=== PATIENT | female | born 1960 | race Caucasian/White ===

== ENCOUNTER 2016-04-04 10:27 | Day surgery (SDC) | payer MEDICAID ==
[~2016-04-04] VITALS: Ht 162.6 cm; Wt 90000.0 kg
[~2016-04-04 10:27] MED LIST: LACTATED RINGERS 1,000 ML IV SCH; SODIUM CHLORIDE FLUSH 3 ML SYR IV PRN
[2016-04-04 10:51] VITALS: BP 148/104
[2016-04-04] MEDS ORDERED: LIDOCAINE 4% TOPICAL 4.5 ML SYR ONE (11:57)
[2016-04-04] MEDS ORDERED: SIMETHICONE 40 MG/0.6 ML (MYLICON DROPS) ORAL SYRINGE ONE (11:57)
[2016-04-04] MEDS ORDERED: ALFENTANIL 500 MCG/ML (ALFENTA) 5 ML AMP IV ONE (12:52)
[2016-04-04] MEDS ORDERED: PROPOFOL 20 ML IV ONE (12:52)
[2016-04-04] MEDS ORDERED: MIDAZOLAM 2 MG/2 ML (VERSED) VIAL ONE (12:52)
[2016-04-04 13:38] VITALS: BP 114/74
[2016-04-04 14:14] VITALS: BP 107/76
--- NOTE | 2016-04-04 14:15 | NUR ---
POTASSIUM OF 2.6 REPORTED TO WIL [facility]SU. NO NEW ORDERS RECEIVED.
--- NOTE | 2016-04-04 14:21 | NUR ---
POTASSIUM OF [address] RAMSEY. NO NEW ORDERS RECEIVED. Addendum: 04/04/16 at 1422 by Pilar Musa RN PATIENT INSTRUCTED TO FOLLOW UP WITH PCP, DR. OLEA.
--- NOTE | 2016-04-04 14:29 | NUR ---
POTASSIUM OF 2.[address] OLEA'S NURSE, JATINDER. JATINDER INFORMED THAT PATIENT HAS BEEN TOLD TO FOLLOW UP.
== END 2016-04-04 14:36 | disposition home or self-care (01) ==
LOC: ASC 10:27
PROVIDERS: ATTEND Surgery
DX: R13.19 Other dysphagia (principal); K21.9 Gastro-esophageal reflux disease without esophagitis; K29.80 Duodenitis without bleeding; K29.30 Chronic superficial gastritis without bleeding; I10 Essential (primary) hypertension; E78.00 Pure hypercholesterolemia, unspecified
CPT/HCPCS: 36415; 43239; 84132; A9270; J2250; J7120

== ENCOUNTER → 2016-05-21 | Outpatient (CLI) | payer MEDICAID ==
[2016-05-21 15:03] VITALS: BP 138/84
== END ==
LOC: MHUC 12:40
PROVIDERS: ATTEND Physician Assistant
DX: R42 Dizziness and giddiness (principal); R53.83 Other fatigue
CPT/HCPCS: 99213

== ENCOUNTER → 2016-05-21 | Outpatient (CLI) | payer MEDICAID ==
[2016-05-21 13:19] LABS: BASOPHILS % (AUTO) 1 % (0-2); EOSINOPHILS # (AUTO) 0.5 10^3uL; EOSINOPHILS % (AUTO) 4 % (0-4); LYMPHOCYTES # (AUTO) 3.3 X10^3; MEAN CORPUSCULAR HEMOGLOBIN 27.5 PG (26.0-34.0); MEAN CORPUSCULAR HGB CONC 34.9 g/dL (31.0-37.0); MEAN PLATELET VOLUME 9.4 FL (6.0-9.5); MONOCYTES # (AUTO) 0.8 X10^3; MONOCYTES % (AUTO) 7 % (3-11); NEUTROPHILS % (AUTO) 60 % (51-67); PLATELET COUNT 387 10^3uL (150-450); WHITE BLOOD COUNT 11.68 10^3uL (4.0-11.0)
[2016-05-21 13:30] LABS: ALBUMIN 4.2 g/dL (3.4-5.0); ANION GAP 13.5 MEQ/L (3-15); CALCULATED IONIZED CALCIUM 4.1 mg/dL (3.8-4.6); TOTAL PROTEIN 7.3 g/dL (6.4-8.5)
[2016-05-21 13:58] LABS: INFLUENZA VIRUS TYPE A ANTIBOD Negative (NEGATIVE); INFLUENZA VIRUS TYPE B ANTIBOD Negative (NEGATIVE)
[2016-05-21 14:03] LABS: MEAN CORPUSCULAR VOLUME 79 FL (80-100)
== END ==
LOC: LAB 13:06
PROVIDERS: ATTEND Physician Assistant
DX: R42 Dizziness and giddiness (principal)
CPT/HCPCS: 36415; 80053; 85025; 87502

== ENCOUNTER 2016-05-23 16:54 | Observation (INO) | payer MEDICAID ==
[~2016-05-23] VITALS: Ht 152.4 cm; Wt 89.5 kg
[2016-05-23] MEDS ORDERED: SODIUM CHLORIDE FLUSH 3 ML SYR IV PRN (17:30)
[2016-05-23] MEDS ORDERED: LORazepam 2 MG/ML (ATIVAN) 1 ML VIAL IV ONE (17:30)
[2016-05-23] MEDS ORDERED: ONDANSETRON 2 MG/ML (Z0FRAN) 2 ML VIAL IV ONE (17:30)
[2016-05-23] MEDS ORDERED: SODIUM CHLORIDE FLUSH 10 ML SYR IV PRN (17:30)
[2016-05-23] MEDS ORDERED: SODIUM CHLORIDE 250 ML IV PRN (17:30)
[2016-05-23] MEDS ORDERED: MECLIZINE 25 MG (ANTIVERT) TABLET PO ONE (17:30)
[2016-05-23 17:48] LABS: BASOPHILS % (AUTO) 1 % (0-2); EOSINOPHILS # (AUTO) 0.4 10^3uL; EOSINOPHILS % (AUTO) 4 % (0-4); MEAN CORPUSCULAR HEMOGLOBIN 27.9 PG (26.0-34.0); MEAN PLATELET VOLUME 9.8 FL (6.0-9.5); MONOCYTES # (AUTO) 0.7 X10^3; MONOCYTES % (AUTO) 8 % (3-11); NEUTROPHILS # (AUTO) 5.5 X10^3; NEUTROPHILS % (AUTO) 57 % (51-67); PLATELET COUNT 350 10^3uL (150-450); WHITE BLOOD COUNT 9.63 10^3uL (4.0-11.0)
[2016-05-23 17:53] LABS: MEAN CORPUSCULAR HGB CONC 35.7 g/dL (31.0-37.0); MEAN CORPUSCULAR VOLUME 78 FL (80-100)
[2016-05-23] MEDS: SODIUM CHLORIDE FLUSH 10 ML SYR IV PRN ×2 (17:55→21:34)
[2016-05-23 17:58] LABS: ALBUMIN 4.4 g/dL (3.4-5.0); ALKALINE PHOSPHATASE 107 U/L (38-126); ANION GAP 13.9 MEQ/L (3-15); BUN/CREATININE RATIO 14 (10-20); CALCULATED IONIZED CALCIUM 4.1 mg/dL (3.8-4.6); CREATINE KINASE 40 U/L (30-135); TOTAL PROTEIN 7.5 g/dL (6.4-8.5)
[2016-05-23 18:40] LABS: BILIRUBIN,URINE Negative (Negative); CLARITY,URINE Cloudy; COLOR,URINE Yellow; GLUCOSE, URINE (UA) Negative (Negative); LEUKOCYTE ESTERASE ,URINE 1+ (Negative); UROBILINOGEN,URINE 0.2 mg/dL (0.2-1.0)
[2016-05-23 18:43] LABS: RBC,URINE 0-2 /HPF; URINE CENTRIFUGED VOLUME <10mL Unspun
[2016-05-23] MEDS ORDERED: POTASSIUM CHLORIDE ER 20 MEQ TABLET PO ONE (18:55)
[2016-05-23] MEDS ORDERED: POTASSIUM CL IVPB 50 ML IV ONE (18:55)
[2016-05-23] MEDS ORDERED: cefTRIAXone SODIUM 1,000 MG in SODIUM CHLORIDE 50 ML IV ONE (19:15)
--- NOTE | 2016-05-23 20:25 | NUR ---
Pt arrives to 318 via cart from ED. Ambulates to weight chair and bed with standby assist. Resp even and non labored on RA. SL intact. See admission assessment for further details.
[2016-05-23 20:30] VITALS: BP 148/92
--- NOTE | 2016-05-23 20:45 | NUR ---
Dr Wilcox in room; updates pt on plan of care. Med list updated.
[2016-05-23] MEDS ORDERED: ACETAMINOPHEN 325 MG TAB (TYLENOL) PO PRN (21:05)
[2016-05-23] MEDS ORDERED: POLYETHYLENE GLYCOL 17 GM (MIRALAX) PACKET PO PRN (21:05)
[2016-05-23] MEDS ORDERED: ONDANSETRON 4 MG (ZOFRAN) ORAL DISSOLVE TAB PO PRN (21:05)
[2016-05-23] MEDS ORDERED: LIDOCAINE PF 1% (XYLOCAINE) 2 ML VIAL INJ ONE ×3 (21:26→23:33)
[2016-05-23] MEDS: POTASSIUM CL IVPB 50 ML IV SCH ×3 (21:34→23:42)
[2016-05-23 23:59] VITALS: BP 109/67
[2016-05-24 00:06] VITALS: BP 109/67
[2016-05-24 04:07] VITALS: BP 118/67
--- NOTE | 2016-05-24 06:05 | NUR ---
Pt rests in long intervals throughout the night. Tolerates potassium infusions w/o difficulty. Lidocaine given IV before potassium infusion per protocol. Resp even and non labored on RA. SL intact. No needs at this time.
[2016-05-24 07:35] VITALS: BP 139/79
--- NOTE | 2016-05-24 07:35 | NUR ---
Patient sleeping in bed upon shift assessment. Arouses easily to verbal stimuli. Alert and oriented X3. Denies pain, dizziness, SOA, nausea, or other distress. Lung sounds CTAB. HR RRR. Updated on plan of care for shift including calling when needing to ambulate for safety and oral potassium schedule. Call light in reach.
[2016-05-24] MEDS ORDERED: POTASSIUM CHLORIDE ER 20 MEQ TABLET PO SCH (08:00)
[2016-05-24 08:32] VITALS: BP 139/79
[2016-05-24] MEDS ORDERED: CHLORTHALIDONE PO SCH (09:00)
[2016-05-24] MEDS ORDERED: AMITRIPTYLINE 50 MG (ELAVIL) TAB PO SCH (09:00)
[2016-05-24] MEDS ORDERED: NON-FORMULARY MEDICATION 1 EA EA (Amitriptyline HCl 100 MG) PO SCH (09:00)
[2016-05-24] MEDS ORDERED: [UNRECOGNIZED DRUG - OTHER] PO SCH (09:00)
[2016-05-24] MEDS ORDERED: ATENOLOL 100 MG PO SCH (09:00)
[2016-05-24] MEDS ORDERED: LEVETIRACETAM 500 MG (KEPPRA) TABLET PO SCH (09:00)
[2016-05-24] MEDS ORDERED: ATENOLOL 25 MG (TENORMIN) TAB PO SCH (09:00)
[2016-05-24] MEDS ORDERED: PANTOPRAZOLE 40 MG (PROTONIX) TAB PO SCH (09:00)
[2016-05-24] MEDS ORDERED: DILTIAZEM 30 MG (CARDIZEM) TAB PO SCH ×2 (09:00→21:00)
[2016-05-24] MEDS ORDERED: CHLORTHALIDONE 50 MG PO SCH (09:00)
[2016-05-24] MEDS ORDERED: ATENOLOL PO SCH (09:00)
--- NOTE | 2016-05-24 10:47 | NUR ---
MED REC COMPLETE--current med list obtained from external med history application and retail pharmacy ([facility]).
[2016-05-24 11:38] VITALS: BP 106/73
--- NOTE | 2016-05-24 13:21 | NUR ---
Discharge order received. IV discontinued with catheter intact. No redness or swelling noted at insertion site. Instructions provided to patient with verbal and written understanding expressed. Discharged via wheelchair to private car accompanied by [employer]. No further needs.
[2016-05-25] MEDS ORDERED: ATENOLOL 50 MG (TENORMIN) TAB PO SCH (09:00)
== END 2016-05-24 13:21 | disposition home or self-care (01) ==
LOC: EDUNIT# 16:54 → ED 16:55 → MED/SURG 19:38
PROVIDERS: ADMIT Pediatrics; ATTEND Pediatrics
DX: I95.1 Orthostatic hypotension (principal); E87.6 Hypokalemia; I10 Essential (primary) hypertension; E78.5 Hyperlipidemia, unspecified; R73.03 Prediabetes; R82.71 Bacteriuria; G40.909 Epilepsy, unspecified, not intractable, without status epilepticus
CPT/HCPCS: 36415; 71010; 80048; 80053; 81003; 81015; 82550; 82553; 83735; 83880; 84132; 84443; 84484; 85025; 85610; 85730; 87088; 93005; 96361; 96365; 96366; 96367; 96375; 99285; A9270; G0378; J0696; J2001; J2060; J2405; J3480; J7030; 93010; 99218

== ENCOUNTER 2016-05-27 12:15 | Inpatient (IN) | payer MEDICAID ==
[~2016-05-27] VITALS: Ht 154.9 cm; Wt 90.3 kg
--- NOTE | 2016-05-27 12:28 | NUR ---
Pt admitted to room 303 at this time via w/c from Dr. Duong's office.
[2016-05-27 12:35] VITALS: BP 135/77
[2016-05-27] MEDS ORDERED: POLYETHYLENE GLYCOL 17 GM (MIRALAX) PACKET PO PRN (12:50)
[2016-05-27] MEDS ORDERED: DOCUSATE SODIUM 100 MG (COLACE) CAP PO PRN (12:50)
[2016-05-27] MEDS ORDERED: MAGNESIUM HYDROXIDE 80MG/ML (MILK OF MAGNESIA) 30 ML UDC PO PRN (12:50)
[2016-05-27] MEDS ORDERED: MAG HYDROX/AL HYDROX/SIMETH 200-200-20/5 ML (MAG-AL PLUS) 30 ML UDC PO PRN (12:50)
[2016-05-27] MEDS ORDERED: ONDANSETRON 4 MG (ZOFRAN) ORAL DISSOLVE TAB PO PRN (12:50)
[2016-05-27] MEDS ORDERED: PROMETHAZINE HCL INJ 12.5 MG in SODIUM CHLORIDE 25 ML IV PRN (12:50)
[2016-05-27] MEDS ORDERED: NS FLUSH 10 ML PRN IV (13:10)
[2016-05-27] MEDS ORDERED: NS FLUSH 3 ML PRN IV (13:10)
[2016-05-27] MEDS ORDERED: SODIUM CHLORIDE 250 ML ONE (13:19)
[2016-05-27] MEDS: POTASSIUM CL INJ SCH ×4 (13:24→16:47)
[2016-05-27] MEDS: LIDOCAINE 1% INJ SCH ×4 (13:24→16:47)
[2016-05-27 13:39] LABS: BASOPHILS % (AUTO) 1 % (0-2); EOSINOPHILS # (AUTO) 0.3 10^3uL; EOSINOPHILS % (AUTO) 3 % (0-4); LYMPHOCYTES # (AUTO) 2.2 X10^3; MEAN CORPUSCULAR HEMOGLOBIN 27.6 PG (26.0-34.0); MEAN CORPUSCULAR HGB CONC 34.7 g/dL (31.0-37.0); MEAN CORPUSCULAR VOLUME 80 FL (80-100); MEAN PLATELET VOLUME 10.2 FL (6.0-9.5); MONOCYTES # (AUTO) 0.5 X10^3; MONOCYTES % (AUTO) 6 % (3-11); NEUTROPHILS # (AUTO) 6.1 X10^3; NEUTROPHILS % (AUTO) 67 % (51-67); PLATELET COUNT 278 10^3uL (150-450); WHITE BLOOD COUNT 9.15 10^3uL (4.0-11.0)
[2016-05-27 13:46] LABS: ALBUMIN 4.1 g/dL (3.4-5.0); ANION GAP 12.9 MEQ/L (3-15); CALCULATED IONIZED CALCIUM 4.1 mg/dL (3.8-4.6); TOTAL PROTEIN 7.1 g/dL (6.4-8.5)
[2016-05-27 14:00] LABS: BILIRUBIN,URINE Negative (Negative); CLARITY,URINE Clear; COLOR,URINE Yellow; GLUCOSE, URINE (UA) Negative (Negative); LEUKOCYTE ESTERASE ,URINE Negative (Negative); UROBILINOGEN,URINE 0.2 mg/dL (0.2-1.0)
[2016-05-27 14:12] VITALS: BP 135/77
[2016-05-27] MEDS ORDERED: fluCOnazole (DIFLUCAN) 100 MG TAB PO ONE (14:15)
[2016-05-27 14:23] LABS: RBC,URINE 0-2 /HPF; URINE CENTRIFUGED VOLUME 12 mL
--- NOTE | 2016-05-27 14:24 | NUR ---
MED REC COMPLETED-current med list obtained from Ext Med History application and previous medication reconciliation from discharge.
--- NOTE | 2016-05-27 14:45 | NUR ---
IVF infusing as ordered concurrent with K+ as ordered. Pt states this helps the potassium from burning so bad at this IV site. Pt has sister and daughter in law at bedside. Dr. Person just finished exam of patient. Pt verbalizes appreciation of care from this hospital. Call light within reach. calls appropriately.
[2016-05-27 16:05] VITALS: BP 101/63
[2016-05-27] MEDS: POTASSIUM CHLORIDE ER 20 MEQ TABLET PO SCH (17:23)
[2016-05-27] MEDS: MECLIZINE 25 MG (ANTIVERT) TABLET PO PRN ×2 (17:23→23:28)
--- NOTE | 2016-05-27 17:57 | NUR ---
Potassium infusion complete- 4 bags IV total. Pt ate 25% supper meal. Son and sister left for evening. Pt states she is tired. Had Meclizine at 1725 for dizziness. Encouraged to call for assist to bathroom when dizzy. Verbalizes understanding. call light within reach.
[2016-05-27 20:08] VITALS: BP 104/62
[2016-05-27] MEDS: LEVETIRACETAM 500 MG (KEPPRA) TABLET PO SCH (20:48)
[2016-05-27] MEDS: PRAVASTATIN 20 MG (PRAVACHOL) TABLET PO SCH (20:48)
[2016-05-28] VITALS (7 sets, daily range): BP systolic 115–151; BP diastolic 62–84
[2016-05-28] MEDS: PANTOPRAZOLE 40 MG (PROTONIX) TAB PO SCH (06:10)
[2016-05-28 06:29] LABS: ALBUMIN 3.5 g/dL (3.4-5.0); ANION GAP 11.3 MEQ/L (3-15); PHOSPHORUS 3.1 mg/dL (2.4-4.9)
--- NOTE | 2016-05-28 06:29 | NUR ---
Patient rests in bed throughout night. Has reported some dizziness, meclizine given x1 this shift. No needs at this time.
[2016-05-28] MEDS: LEVETIRACETAM 500 MG (KEPPRA) TABLET PO SCH ×2 (07:38→22:02)
[2016-05-28] MEDS: POTASSIUM CHLORIDE ER 20 MEQ TABLET PO SCH ×2 (07:38→17:41)
[2016-05-28] MEDS: MECLIZINE 25 MG (ANTIVERT) TABLET PO PRN ×4 (07:38→22:02)
--- NOTE | 2016-05-28 07:42 | NUR ---
Pt resting in bed, had just previously ambulated to bathroom- states she is dizzy and asking for "dizzy pill". Meclizine 25mg PO given now as ordered. Pt lays back down to rest more before bfst. Tele in place. IV SL intact. Call light within reach. Calls for assist to BR due to dizziness.
[2016-05-28] MEDS ORDERED: MAGNESIUM 1 GM/100 ML IVPB 100 ML IV ONE (07:50)
[2016-05-28] MEDS ORDERED: SODIUM CHLORIDE 250 ML ONE (07:57)
--- NOTE | 2016-05-28 08:05 | NUR ---
NUTRITION ASSESSMENT Level 1 Patient: Mellisa Lepe Age/Sex: 55/F Date Screened: 05-28-16 Weight: 198.6#/90.3 kg Height: 61 inches Primary Diagnosis: hypokalemia Diet Order: regular Relevant labs: potassium 3.0, glucose 100 Food allergies: N Nutrition Assessment Criteria Age over 80: N Body Mass Index (BMI) under 19: N Admission Screening Indicates Risk? N Moderate/High Risk Diagnosis: N TPN or PPN: N NPO or clear liquid diet: N Serum Glucose <70 or >180: N Hgb A1c >6.7: N/A Total: 0 points Risk Screen: _X_ Patient at low nutritional risk based on available data; reevaluate in 5-7 days __ Patient at moderate nutritional risk based on available data; reevaluate in 3-5 days __ Patient at high nutritional risk; complete Nutrition Assessment within 48 hours of admission. Comments: Weight stable (196.9# on 05-23-16), no GI concerns. Noted hypokalemia secondary to meds, per physician report. Will reassess as documented above.
[2016-05-28] MEDS: POTASSIUM CL INJ SCH ×4 (09:14→13:19)
[2016-05-28] MEDS: LIDOCAINE 1% INJ SCH ×4 (09:14→13:19)
[2016-05-28] MEDS: NS FLUSH 3 ML DAILY IV SCH (09:16)
[2016-05-28] MEDS: ENOXAPARIN 40 MG/0.4 ML (LOVENOX) SYR SC SCH (09:16)
--- NOTE | 2016-05-28 12:00 | NUR ---
Sloane Marcus RN in room for IV start- 20g IV started to RFA. IV patent, SL.
--- NOTE | 2016-05-28 14:26 | NUR ---
Pt given Meclizine for dizziness. Potassium IV x4 bags completed at this time. IV SL intact at this time to RFA.
--- NOTE | 2016-05-28 15:10 | NUR ---
Pt has ambulated halls with PT. She states that her dizziness worsened when the PT asked her to ambulate with her eyes closed. Ortho VS taken at this time- see VS database. TG shapes in place. SCD's in place. Call light within reach. Sister, Jigna at bedside.
--- NOTE | 2016-05-28 15:50 | NUR ---
Dr. Person notified of potassium 3.9- VORB to DC Telemetry.
--- NOTE | 2016-05-28 16:34 | NUR ---
Telemetry dc'd at this time as ordered.
--- NOTE | 2016-05-28 17:51 | NUR ---
Pt sitting upright in bed, eating supper meal. Takes PO Potassium broke in half- states whole tab is too big. Pt calls appropriately .
--- NOTE | 2016-05-28 18:19 | NUR ---
Meclizine 25mg PO given now before patient goes to shower.
--- NOTE | 2016-05-28 20:00 | NUR ---
Resting in bed. Is alert and oriented. No discomforts voiced at this time. Reminded to call for assistance when needing to use the restroom, or when wanting to ambulate in halls. Call light within reach.
[2016-05-28] MEDS: PRAVASTATIN 20 MG (PRAVACHOL) TABLET PO SCH (22:02)
--- NOTE | 2016-05-28 22:02 | NUR ---
Meclizine 25mg administered per request for dizziness.
[2016-05-29] VITALS (8 sets, daily range): BP systolic 120–148; BP diastolic 72–89
--- NOTE | 2016-05-29 06:11 | NUR ---
Patient rested well tonight. Stand by assist to the bathroom. No dizziness tonight. No discomforts voiced. Call light within reach.
[2016-05-29] MEDS: PANTOPRAZOLE 40 MG (PROTONIX) TAB PO SCH (06:33)
[2016-05-29] MEDS: MECLIZINE 25 MG (ANTIVERT) TABLET PO PRN ×3 (06:33→21:26)
[2016-05-29 06:52] LABS: ALBUMIN 3.5 g/dL (3.4-5.0); ANION GAP 10.9 MEQ/L (3-15); MAGNESIUM* 1.9 mg/dL (1.6-2.3); PHOSPHORUS 3.6 mg/dL (2.4-4.9)
--- NOTE | 2016-05-29 07:30 | NUR ---
Pt resting comfortably in bed at this time. Skin warm, dry, intact. Resprs nonlabored, even on RA. SL intact. Denies needs.
[2016-05-29] MEDS: POTASSIUM CHLORIDE ER 20 MEQ TABLET PO SCH ×3 (09:00→17:58)
[2016-05-29] MEDS: LEVETIRACETAM 500 MG (KEPPRA) TABLET PO SCH ×2 (09:00→21:26)
[2016-05-29] MEDS: ENOXAPARIN 40 MG/0.4 ML (LOVENOX) SYR SC SCH (09:01)
[2016-05-29] MEDS: NITROGLYCERIN SUBLINGUAL 0.4 MG (NITROQUICK) TABLET SL PRN ×2 (09:04→09:24)
[2016-05-29] MEDS ORDERED: morphine INJ 4 MG/ML 1 ML SYRINGE IV PRN (09:40)
--- NOTE | 2016-05-29 10:00 | NUR ---
0900- Pt c/o stabbing chest pain rated 5/10 that came on suddenly within the last couple minutes. Bloustine notified, new orders entered. 0904- PRN Nitro given. 923- Pt rates chest pain 9/10. Another Nitro dose given at that time. 0957- Pt continues to rate chest pain 9/10. Lying still in bed, facial grimacing noted. Bloustine aware. PRN Morphine given at that time.
[2016-05-29] MEDS: NS FLUSH 3 ML DAILY IV SCH (10:13)
[2016-05-29] MEDS ORDERED: GI COCKTAIL 55 ML UDC PO ONE (10:30)
[2016-05-29] MEDS ORDERED: BELLADONNA PO ONE ×3 (10:50)
[2016-05-29] MEDS ORDERED: VISCOUS PO ONE ×3 (10:50)
[2016-05-29] MEDS ORDERED: [UNRECOGNIZED DRUG - OTHER] PO ONE ×3 (10:50)
[2016-05-29] MEDS ORDERED: LIDOCAINE PO ONE ×3 (10:50)
--- NOTE | 2016-05-29 11:05 | NUR ---
GI cocktail provided at this time. Pt continues to rate pain 10/10. Pt states the pain got worse when she stood up to use the RR. Pt is resting in bed with her eyes closed at this time. Denies needs.
--- NOTE | 2016-05-29 14:39 | NUR ---
MULTIDISCIPLINARY MTG/DR. TORRES: Pt. admitted for hypokalemia. Pt. has been receiving IV replacement and changed to po today. Pt. was complaining of chest pain today. Troponin was negative and the EKG showed subtle changes. Pt. chest pain has improved with a GI cocktail. No discharge needs identified at this time.
[2016-05-29] MEDS: CALCIUM CARBONATE CHEWABLE 300 MG (TUMS) TABLET PO PRN (15:19)
--- NOTE | 2016-05-29 15:20 | NUR ---
PRN Tums provided at this time per Dr Person's instruction. Pt denies other needs. Resting in bed, sister at bedside. Denies needs.
--- NOTE | 2016-05-29 17:25 | NUR ---
Pt states Tums has helped. Has rested in bed most of the afternoon. States she feels better. Skin warm, dry, intact. Resprs nonlabored, even on RA. SL intact. Pt denies needs at this time.
--- NOTE | 2016-05-29 18:08 | NUR ---
Pt is c/o chest discomfort rated 5/10 after finishing dinner meal. PRN Mag Ox given at this time. Bloustine aware. Will continue to monitor.
--- NOTE | 2016-05-29 20:00 | NUR ---
Patient resting in bed. Playing a game on her computer. Her sister is in her room and going to stay the night with her. Denies any epigastric pain or chest pain at this time. Reminded patient that she could have antacid if needed. Patient will call if she has any needs.
[2016-05-29] MEDS: PRAVASTATIN 20 MG (PRAVACHOL) TABLET PO SCH (21:26)
--- NOTE | 2016-05-29 22:00 | NUR ---
Ready for sleep. HS cares given. Meclizine administered per request. Is steady when ambulating to the bathroom, but reminded to call for assistance.
[2016-05-30] VITALS (7 sets, daily range): BP systolic 128–166; BP diastolic 76–94
--- NOTE | 2016-05-30 06:07 | NUR ---
Rested at long intervals tonight. Still calls for assistance when getting up, yet does well. Meclizine x one tonight. Patient feels that it does help, and she does not feel as dizzy as she was on admission. Denies chest pain or indigestion at this time. Telemetry shows NSR. Call light within reach.
[2016-05-30] MEDS: PANTOPRAZOLE 40 MG (PROTONIX) TAB PO SCH (06:45)
[2016-05-30] MEDS: MECLIZINE 25 MG (ANTIVERT) TABLET PO PRN ×2 (08:07→15:31)
[2016-05-30] MEDS: LEVETIRACETAM 500 MG (KEPPRA) TABLET PO SCH ×2 (08:07→20:28)
[2016-05-30] MEDS: POTASSIUM CHLORIDE ER 20 MEQ TABLET PO SCH ×2 (08:07→17:53)
[2016-05-30] MEDS: NS FLUSH 3 ML DAILY IV SCH (08:08)
[2016-05-30] MEDS: ENOXAPARIN 40 MG/0.4 ML (LOVENOX) SYR SC SCH (08:08)
[2016-05-30] MEDS: ACETAMINOPHEN 325 MG TAB (TYLENOL) PO PRN ×2 (09:10→16:48)
[2016-05-30 09:11] LABS: ALBUMIN 3.8 g/dL (3.4-5.0); MAGNESIUM* 2.1 mg/dL (1.6-2.3); PHOSPHORUS 3.8 mg/dL (2.4-4.9)
[2016-05-30] MEDS: CALCIUM CARBONATE CHEWABLE 300 MG (TUMS) TABLET PO PRN (10:06)
--- NOTE | 2016-05-30 18:19 | NUR ---
Patient sitting up in bed conversing with visitors. PRN meclizine provided on two occasions throughout dayshift. Denies dizziness subsides but states "it takes the edge off". PRN Tylenol provided for c/o headache. Pleasant and cooperative with cares. call light in reach.
[2016-05-30] MEDS: PRAVASTATIN 20 MG (PRAVACHOL) TABLET PO SCH (20:28)
[2016-05-30] MEDS: SALINE NASAL SPRAY (OCEAN) 45 ML BTL SCH (20:28)
[2016-05-30] MEDS: FLUTICASONE NASAL 50 MCG/SPRAY (FLONASE) 16 GM BTL NS SCH (20:28)
[2016-05-30] MEDS: AMOXICILLIN/CLAVULANATE 875MG-125MG (AUGMENTIN) TABLET PO SCH (20:28)
[2016-05-31] MEDS: PANTOPRAZOLE 40 MG (PROTONIX) TAB PO SCH (06:12)
--- NOTE | 2016-05-31 06:23 | NUR ---
Patient rests in bed throughout night without needs. This AM reports that she hopes she will be able to go home. No needs at this time.
[2016-05-31 07:46] VITALS: BP 146/80
[2016-05-31 07:47] VITALS: BP_SYST 124; BP_SYST 136; BP_SYST 146; BP_DIAS 70; BP_DIAS 76; BP_DIAS 80
[2016-05-31 08:04] LABS: ALBUMIN 3.5 g/dL (3.4-5.0); ANION GAP 12.2 MEQ/L (3-15); PHOSPHORUS 4.2 mg/dL (2.4-4.9)
[2016-05-31] MEDS: LEVETIRACETAM 500 MG (KEPPRA) TABLET PO SCH (10:00)
[2016-05-31] MEDS: AMOXICILLIN/CLAVULANATE 875MG-125MG (AUGMENTIN) TABLET PO SCH (10:00)
[2016-05-31] MEDS: SALINE NASAL SPRAY (OCEAN) 45 ML BTL SCH (10:01)
[2016-05-31] MEDS: FLUTICASONE NASAL 50 MCG/SPRAY (FLONASE) 16 GM BTL NS SCH (10:03)
[2016-05-31] MEDS: NS FLUSH 3 ML DAILY IV SCH (10:15)
[2016-05-31] MEDS: POTASSIUM CHLORIDE ER 20 MEQ TABLET PO SCH (10:15)
[2016-05-31] MEDS: ENOXAPARIN 40 MG/0.4 ML (LOVENOX) SYR SC SCH (10:15)
--- NOTE | 2016-05-31 10:55 | NUR ---
Discharge instructions reviewed with patient, demonstrates understanding. SL removed with catheter tip intact. No redness or edema noted. Pharmacy consulted with pt on new meds. Belongings gathered. Pt dismissed at this time via w/c accompanied by Ramiro Banegas CNA to private vehicle. Belongings and DC packet sent with patient. Pt very appreciative of cares.
== END 2016-05-31 10:55 | disposition home or self-care (01) | DRG 641 ==
LOC: UNDOADMIN 12:15 → INTOOBSV 12:15 → MED/SURG 12:15 → OBSVTOIN 05-28 09:45
PROVIDERS: ADMIT Internal Medicine; ATTEND Internal Medicine
DX: E87.6 Hypokalemia (principal); G45.3 Amaurosis fugax; H93.19 Tinnitus, unspecified ear; H81.10 Benign paroxysmal vertigo, unspecified ear; E86.0 Dehydration; B37.3 Candidiasis of vulva and vagina; J32.0 Chronic maxillary sinusitis; I10 Essential (primary) hypertension; G40.909 Epilepsy, unspecified, not intractable, without status epilepticus; R73.03 Prediabetes; T50.2X5A Adverse effect of carbonic-anhydrase inhibitors, benzothiadiazides and other diuretics, initial encounter
CPT/HCPCS: 36415; 70496; 80053; 80069; 81003; 81015; 82150; 82550; 83690; 83735; 83930; 83935; 84132; 84133; 84484; 85025; 86140; 93005

== ENCOUNTER → 2016-06-27 | Outpatient (CLI) | payer MEDICAID ==
[~2016-06-27] MED LIST changes: +AC325T PO; +AMIT100T2 PO; +AMOX1TAB12 PO; +ATEN100T13 PO; +ATEN1TAB3 PO; +ATN50T PO; +BENA40TA5 PO; +CAND32TA8 PO; +CEPH-331 PO; +CHLO50TA PO; +DILT30TA PO; +DILT30TA30 PO; +FLUT16SP NS; -LACTATED RINGERS 1,000 ML IV SCH; +LEVE500T6 PO; +LOVA20TA2 PO; +MAG30ORA PO; +MECL-105 PO; +NFCHLORT25 PO; +NS.65NA45; +OMEP20CA12 PO; +POTA10CA43 PO; +POTA10TA10 PO; +SMV20T PO; -SODIUM CHLORIDE FLUSH 3 ML SYR IV PRN
--- NOTE | 2016-06-27 13:31 | Diagnostic Imaging Report ---
EXAMINATION: CT abdomen and pelvis with and without contrast dated 06/27/2016. TECHNIQUE: Precontrast acquisitions were acquired through the abdomen. Multiple contiguous axial images were obtained through the abdomen and pelvis after administration of intravenous contrast. INDICATION: Abdominal pain and bloating, pressure in the abdomen and pelvis. Normal bowel movement and urges to urinate. COMPARISONS: None. FINDINGS: The liver and spleen demonstrate no evidence for acute disease. There are clips in the right upper quadrant consistent with previous cholecystectomy. The pancreas is unremarkable. There is a small nodular density associated with the left adrenal gland which measures 8.8 mm in greatest dimension. This is nonspecific given its small size. A similar lesion noted on the right measures 1.1 cm in greatest dimension. Common bile duct is minimally prominent but likely due to the postoperative changes. No ascites, free air, or lymphadenopathy is seen within the abdomen. Within the pelvis, there is no evidence for acute process with no inflammatory change about the bowel loops. Minimal wall thickening of the descending colon noted. No free fluid or air is appreciated. There is no evidence for lymphadenopathy. The kidneys demonstrate no acute abnormality; however, they contain multiple small cystic changes, too small to characterize. This could be followed with CT or further characterize with sonography. The osseous structures demonstrate no acute abnormalities. The visualized lung bases are also grossly unremarkable. IMPRESSION: 1. Minimal wall thickening noted along the descending colon most likely due to underdistention, less likely due to colitis, correlate with symptoms. 2. Small nodules in the adrenal glands nonspecific. These could be followed using an adrenal protocol for further characterization as clinically warranted. 3. Other incidental findings as discussed above. Dictated by: Dictated on workstation # [id number]
== END ==
LOC: RAD 09:46
PROVIDERS: ATTEND Family Medicine
DX: R10.84 Generalized abdominal pain (principal); R14.0 Abdominal distension (gaseous); E27.8 Other specified disorders of adrenal gland
CPT/HCPCS: 74178; Q9967

== ENCOUNTER 2016-07-03 09:55 | Emergency (ER) | payer MEDICAID ==
[~2016-07-03] VITALS: Ht 152.4 cm; Wt 89.5 kg
[2016-07-03 10:41] LABS: BILIRUBIN,URINE Negative (Negative); CLARITY,URINE Clear; COLOR,URINE Yellow; GLUCOSE, URINE (UA) Negative (Negative); LEUKOCYTE ESTERASE ,URINE Negative (Negative); PH,URINE 5.5 (5.0 - 8.0); UROBILINOGEN,URINE 0.2 mg/dL (0.2-1.0)
[2016-07-03 10:46] LABS: URINE CENTRIFUGED VOLUME 12 mL
--- NOTE | 2016-07-03 11:31 | NUR ---
SAMANO CATHETER DISCONTINUED. PATIENT TOLERATED WELL.
[2016-07-03 11:34] VITALS: BP 142/67
== END 2016-07-03 11:36 | disposition home or self-care (01) ==
LOC: ED 09:57
DX: R19.8 Other specified symptoms and signs involving the digestive system and abdomen (principal)
CPT/HCPCS: 51702; 51798; 81003; 81015; 99283